=== PATIENT | male | born 1990 | race Caucasian/White ===

== ENCOUNTER 2021-07-16 16:19 | Emergency (ER) | payer MEDICAID ==
[~2021-07-16] VITALS: Ht 172.7 cm; Wt 83.9 kg
[2021-07-16] MEDS ORDERED: CIPR10DR5 EACH EAR (17:21)
[2021-07-16] MEDS ORDERED: AMOX875T2 PO ×2 (17:21→17:45)
[2021-07-16] MEDS ORDERED: HYDR-4209 PO ×2 (17:23→17:45)
--- NOTE | 2021-07-16 17:40 | NUR ---
PT SEEN AND EVALUATED BY DR BUI.
--- NOTE | 2021-07-16 17:41 | NUR ---
DISCHARGE INSTRUCTIONS RENDERED PER MD ORDER.
[2021-07-16] MEDS ORDERED: CIPR7.5D EACH EAR (17:45)
[2021-07-16 18:03] VITALS: BP 130/90
== END 2021-07-16 18:03 | disposition home or self-care (01) ==
LOC: ER 16:43
DX: H66.93 Otitis media, unspecified, bilateral (principal); H60.93 Unspecified otitis externa, bilateral
CPT/HCPCS: A4663

== ENCOUNTER 2021-07-18 21:36 | Emergency (ER) | payer MEDICAID ==
[~2021-07-18] VITALS: Ht 172.7 cm; Wt 81.6 kg
[~2021-07-18 21:36] MED LIST: AMOX875T2 PO; CIPR7.5D EACH EAR; HYDR-4209 PO
--- NOTE | 2021-07-18 21:50 | NUR ---
Pt cristina back to room ED2B by triage for poss bite on LLQ. reddened area the size on orange is itchy, hot to touch and is very tender. Pt otherwize healthy with no med issues.
--- NOTE | 2021-07-18 21:55 | NUR ---
EDMD at bedside to assess pt.
--- NOTE | 2021-07-18 22:00 | NUR ---
EDMD ordered some meds and cultured the infected ear. Meds were administered and pt states feeling better. Paperwork given and aftercare discussed.
[2021-07-18] MEDS ORDERED: ERYT250T65 PO (22:29)
[2021-07-18] MEDS ORDERED: OXYC-128 PO (22:30)
[2021-07-18] MEDS ORDERED: CIPR7.5D EACH EAR (22:30)
[2021-07-19 01:08] VITALS: BP 128/70
== END 2021-07-18 22:00 | disposition home or self-care (01) ==
LOC: ER 21:39
DX: L03.311 Cellulitis of abdominal wall (principal); H60.93 Unspecified otitis externa, bilateral; J45.909 Unspecified asthma, uncomplicated
CPT/HCPCS: 87070; A4663